=== PATIENT | male | born 1955 | race Caucasian/White ===

== ENCOUNTER 2017-02-02 18:40 | Emergency (ER) | payer OTHER ==
[~2017-02-02] VITALS: Ht 180.3 cm; Wt 88.5 kg
[~2017-02-02 18:40] MED LIST: ASPI81TA82 PO; FENO145T2 PO; HYDR-3533 PO; KETO10 PO; METF500 PO; OMEP20TA39 PO; TAB-TAB PO; ZOFR4TAB3 SL
[2017-02-02 18:41] VITALS: BP 178/86; PULSE 76; RESP 18; TEMP 98.1; O2SAT 96
--- NOTE | 2017-02-02 19:17 | PD ---
Physical Exam Time Seen by Provider: 19:15 Narrative 62yo M c/o abd pain R sided and radiates around back. Hx of kidney and diverticulitis. +constipation. Denies N, V, fever. Denies urinary symptoms. Patient seen in triage. VS reviewed. Awaiting bed placement. Data Data Last Documented VS Vital Signs Date Time Temp Pulse Resp B/P Pulse Ox O2 Delivery O2 Flow Rate FiO2 02/02/17 18:41 98.1 76 18 178/86 96 Room Air MDM Supervised Visit with RAHUL: Sharmila Shabazz Feb 02, 2017 19:17
[2017-02-02 20:25] LABS: BLOOD, URINE LARGE (NEG); COMMENT (UR) CULT NOT INDICATED; CULTURE IF INDICATED CULT NOT INDICATED; GLUCOSE,URINE TRACE mg/dL (NEG); HYALINE CAST, URINE 4 /lpf (RARE); KETONE, URINE NEG (NEG); MUCUS URINE FEW /lpf (OCC); NITRITE,URINE NEG (NEG); PH, URINE 5.5 (5.0-8.5); SQUAMOUS EPITHELIAL CELL URINE <1 /hpf (0-5); URINE COLOR YELLOW (YELLW/STRAW)
[2017-02-02] MEDS ORDERED: SODIUM CHLORIDE 0.9% FLUSH 10 ML FLUSH IV FLUSH PRN (20:45)
--- NOTE | 2017-02-02 20:46 | PD ---
HPI . Abdominal pain radiating to the back for one day Chief Complaint: GI Complaint Time Seen by Provider: 20:39 Travel History International Travel<30 days: No Contact w/Intl Traveler<30days: No Traveled to known affect area: No History of Present Illness HPI 62-year-old male with history of diverticulitis, nephrolithiasis, diabetes and hyperlipidemia here with complaints of abdominal pain that started about 3:30 this morning. Patient says he was resting in bed when he developed sudden onset of abdominal pain wrapping around to both sides of his back. He reports it feels similar to when had kidney stones in the past, however he does not have any urinary changes this time. He tells me last time during his kidney stone episode that he had difficulty urinating. Patient rates the pain at this present moment as 5/10, however earlier on his way here he had 10/10 pain where he was doubled over. He also reports some issues with bowel movements and has been constipated for the past few days. He denies any nausea, vomiting, diarrhea, dysuria, hematuria or changes in urinary frequency. He is accompanied by his . PFSH Past Medical History Asthma: No Blood Disorders: No Anxiety: No Depression: No Heart Rhythm Problems: No Cancer: Yes (SURGERY HEAD CANCER) Cardiovascular Problems: No High Cholesterol: Yes Chemotherapy: No Chest Pain: No Congestive Heart Failure: No COPD: No Diabetes: Yes Diminished Hearing: No Endocrine: No Genitourinary: No Immune Disorder: No Musculoskeletal: No Neurologic: No Psychiatric: No Reproductive: No Respiratory: No Radiation Therapy: No Sleep Apnea: No Thyroid Disease: No Past Surgical History Other Surgery: Yes (MULTIPLE SCALP SURGERIES FOR CANCER) Social History Alcohol Use: Yes (COUPLE TIMES A WEEK) Tobacco Use: No (never) Substance Use: No Allergies-Medications (Allergen,Severity, Reaction): Coded Allergies: No Known Allergies (Verified , 02/02/17) Reported Meds & Prescriptions Reported Meds & Active Scripts Active Zofran ODT (Ondansetron HCl) 4 Mg Tab 4 Mg SL Q6H PRN FOR NAUSEA/VOMITING Lortab 5 mg/325 mg (Hydrocodone/Acetaminophen 5 mg/325 mg) 1 Tab 1 Tab PO Q4H PRN Toradol (Ketorolac Tromethamine) 10 Mg Tab 10 Mg PO Q6 5 Days Aspir-81 (Aspirin) 81 Mg Tab 81 Mg PO DAILY 30 Days Reported Fenofibrate 145 Mg Tab 145 Mg PO DAILY Hm Omeprazole (Omeprazole) 20 Mg Tab 20 Mg PO DAILY Glucophage 500 mg (Metformin HCl) 500 Mg Tab 500 Mg PO BIDPC Multivitamin (Multivitamins) 1 Tab Tab 1 Tab PO DAILY Review of Systems General / Constitutional: No: Fever Eyes: No: Visual changes HENT: No: Headaches Cardiovascular: No: Chest Pain or Discomfort Respiratory: No: Shortness of Breath Gastrointestinal: Positive: Abdominal Pain Genitourinary: No: Dysuria Musculoskeletal: Positive: Pain (back pain) Skin: No Rash Neurologic: No: Weakness Psychiatric: No: Depression Endocrine: No: Polydipsia Hematologic/Lymphatic: No: Easy Bruising Physical Exam Narrative GENERAL: AAO x 3, no acute distress, Well-nourished, well-developed patient. SKIN: Warm and dry. No visible rashes or bruising. HEAD: Normocephalic and atraumatic. EYES: No scleral icterus. No injection or drainage. EOM intact, PERRLA ENT: No nasal drainage noted. Mucous membranes pink. Airway patent. Moist mucous membrane. NECK: Supple, trachea midline. No JVD. CARDIOVASCULAR: Regular rate and rhythm without murmurs, gallops, or rubs. RESPIRATORY: Breath sounds equal bilaterally. No accessory muscle use. No rhonchi or rales. GASTROINTESTINAL: Abdomen is soft, there is tenderness in the entire abdomen but more prominent in the right upper quadrant. No McBurney point tenderness. No rebound or guarding. EXTREMITIES: No cyanosis or edema. BACK: Nontender without obvious deformity. Bilateral CVA tenderness on examination. NEURO: CN 2 through 12 intact PSYCH: AAO x 3, normal affect. Data Data Last Documented VS Vital Signs Date Time Temp Pulse Resp B/P Pulse Ox O2 Delivery O2 Flow Rate FiO2 02/02/17 18:41 98.1 76 18 178/86 96 Room Air Orders Urinalysis - C+S If Indicated (02/02/17 19:41) Complete Blood Count With Diff (02/02/17 20:33) Comprehensive Metabolic Panel (02/02/17 20:33) Lipase (02/02/17 20:33) Ct Abd/Pel W Iv Contrast(Rout) (02/02/17 20:33) Iv Access Insert/Monitor (02/02/17 20:33) Ecg Monitoring (02/02/17 20:33) Oximetry (02/02/17 20:33) NPO (02/02/17 20:33) Sodium Chloride 0.9% Flush (Ns Flush) (02/02/17 20:45) Electrocardiogram (02/02/17 20:33) Labs Laboratory Tests Test 02/02/17 19:42 Urine Color YELLOW Urine Turbidity CLEAR Urine pH 5.5 Urine Specific [place] 1.016 Urine Protein 30 mg/dL Urine Glucose (UA) TRACE mg/dL Urine Ketones NEG mg/dL Urine Occult Blood LARGE Urine Nitrite NEG Urine Bilirubin NEG Urine Urobilinogen LESS THAN 2.0 MG/DL Urine Leukocyte Esterase NEG Urine RBC /hpf Urine WBC 5 /hpf Urine Squamous Epithelial <1 /hpf Cells Urine Hyaline Casts 4 /lpf Urine Mucus FEW /lpf Microscopic Urinalysis Comment CULT NOT INDICATED MDM Medical Decision Making Medical Screen Exam Complete: Yes Emergency Medical Condition: Yes Medical Record Reviewed: Yes Differential Diagnosis Nephrolithiasis, cholecystitis, cholelithiasis, constipation, diverticulitis, pancreatitis Narrative Course This is a 62-year-old male presenting with acute onset of abdominal pain earlier this morning. Examination is remarkable for diffuse abdominal tenderness more prominent in the right upper quadrant. He also has bilateral CVA tenderness. Labs and CT scan of the abdomen and pelvis have been ordered. At this point I suspect patient has nephrolithiasis or cholecystitis versus cholelithiasis. I've offered him pain medication, and he declined. I have discussed the case with Dr. Hickey. He will determine patient's disposition. Condition: Stable Sanjuana Glover Feb 02, 2017 20:46
--- NOTE | 2017-02-02 20:56 | PD ---
Data Data Last Documented VS Vital Signs Date Time Temp Pulse Resp B/P Pulse Ox O2 Delivery O2 Flow Rate FiO2 02/02/17 21:00 75 16 147/80 98 Room Air 02/02/17 18:41 98.1 Orders Urinalysis - C+S If Indicated (02/02/17 19:41) Complete Blood Count With Diff (02/02/17 20:33) Comprehensive Metabolic Panel (02/02/17 20:33) Lipase (02/02/17 20:33) Ct Abd/Pel W Iv Contrast(Rout) (02/02/17 20:33) Iv Access Insert/Monitor (02/02/17 20:33) Ecg Monitoring (02/02/17 20:33) Oximetry (02/02/17 20:33) NPO (02/02/17 20:33) Sodium Chloride 0.9% Flush (Ns Flush) (02/02/17 20:45) Electrocardiogram (02/02/17 20:33) Oral Contrast - Adult (02/02/17 20:37) Diatrizoate Liq ( Gastroview Liq) (02/02/17 21:14) Iodixanol 320 Inj (Rad Ct) (Visipaque 32 (02/02/17 22:29) Ciprofloxacin (Cipro) (02/02/17 23:00) Labs Laboratory Tests Test 02/02/17 02/02/17 19:42 20:45 Urine Color YELLOW Urine Turbidity CLEAR Urine pH 5.5 Urine Specific [place] 1.016 Urine Protein 30 mg/dL Urine Glucose (UA) TRACE mg/dL Urine Ketones NEG mg/dL Urine Occult Blood LARGE Urine Nitrite NEG Urine Bilirubin NEG Urine Urobilinogen LESS THAN 2.0 MG/DL Urine Leukocyte Esterase NEG Urine RBC /hpf Urine WBC 5 /hpf Urine Squamous Epithelial <1 /hpf Cells Urine Hyaline Casts 4 /lpf Urine Mucus FEW /lpf Microscopic Urinalysis Comment CULT NOT INDICATED White Blood Count 12.6 TH/MM3 Red Blood Count 4.44 MIL/MM3 Hemoglobin 14.6 GM/DL Hematocrit 40.9 % Mean Corpuscular Volume 92.1 FL Mean Corpuscular Hemoglobin 32.8 PG Mean Corpuscular Hemoglobin 35.7 % Concent Red Cell Distribution Width 12.0 % Platelet Count 189 TH/MM3 Mean Platelet Volume 8.4 FL Neutrophils (%) (Auto) 89.5 % Lymphocytes (%) (Auto) 4.2 % Monocytes (%) (Auto) 6.0 % Eosinophils (%) (Auto) 0.2 % Basophils (%) (Auto) 0.1 % Neutrophils # (Auto) 11.3 TH/MM3 Lymphocytes # (Auto) 0.5 TH/MM3 Monocytes # (Auto) 0.8 TH/MM3 Eosinophils # (Auto) 0.0 TH/MM3 Basophils # (Auto) 0.0 TH/MM3 CBC Comment DIFF FINAL Differential Comment Sodium Level 132 MEQ/L Potassium Level 4.6 MEQ/L Chloride Level 98 MEQ/L Carbon Dioxide Level 27.2 MEQ/L Anion Gap 7 MEQ/L Blood Urea Nitrogen 18 MG/DL Creatinine 1.77 MG/DL Estimat Glomerular Filtration 39 ML/MIN Rate Random Glucose 180 MG/DL Calcium Level 9.6 MG/DL Total Bilirubin 0.7 MG/DL Aspartate Amino Transf 34 U/L (AST/SGOT) Alanine Aminotransferase 62 U/L (ALT/SGPT) Alkaline Phosphatase 69 U/L Total Protein 7.8 GM/DL Albumin 4.3 GM/DL Lipase 267 U/L [facility] Medical Record Reviewed: Yes Supervised Visit with RAHUL: Yes Narrative Course CBC & BMP Diagram 02/02/17 20:45 LFTs normal Lipase normal UA: Hematuria CT abdomen/pelvis: mild inflammatory change around kidney without stone possibly c/w passed stone Pt actually passed a stone while in ER and a photo was obtained of it. Upon reassessment 1045pm: The patient is resting comfortably and feels better, is alert and in no distress. The patients results and examination findings were discussed. The repeat examination is unremarkable and benign. The history, exam , diagnostic testing, and current condition do not suggest any significant pathology to warrant further testing, continued ED treatment, admission, or surgical evaluation at this point. The vital signs have been stable. The patient does not have uncontrollable pain, intractable vomiting, or other significant symptoms. The patient's condition is stable and appropriate for discharge. The patient will pursue further outpatient evaluation with a primary care physician or other designated or consulting physician as indicated in the discharge instructions. The patient expressed understanding and was agreeable with this plan. Diagnosis Primary Impression: Hematuria Additional Impression: Hydroureter Referrals: Ruslan Muñoz MD 2 days Additional Instruction: You have a choice when it comes to health care, and we are glad that you chose [facility]. Hopefully, we have met your expectations on today's visit. You are welcome to return to [facility] at any time, as we are committed to meeting the health care needs of our community. Med/Other Pt SpecificInfo: Prescription(s) given Scripts Ciprofloxacin (Cipro)500 Mg Arm683 Mg PO BID 7 Days Ref 0 Prov:Noe Hickey MD 02/02/17 Disposition: 01 DISCHARGE HOME Condition: Stable Noe Hickey MD Feb 02, 2017 20:56
[2017-02-02 21:00] VITALS: BP 147/80; PULSE 75; RESP 16; O2SAT 98
[2017-02-02] MEDS ORDERED: ZOFR4TAB PO (21:02)
[2017-02-02] MEDS ORDERED: MULTTAB22 (21:02)
[2017-02-02] MEDS ORDERED: OMEP20TA PO (21:02)
[2017-02-02] MEDS ORDERED: METF500T PO (21:02)
[2017-02-02] MEDS ORDERED: FENO145T2 PO (21:02)
[2017-02-02] MEDS ORDERED: ASPI81CH7 CHEW (21:02)
[2017-02-02] MEDS ORDERED: DIATRIZOATE MEGLUM/DIATRIZOATE SOD 9 ML CUP ONE (21:14)
[2017-02-02 21:35] LABS: AUTOMATED NEUTROPHIL # 11.3 TH/MM3 (1.8-7.7); BASOPHIL % 0.1 % (0.0-2.0); EOSINOPHIL % 0.2 % (0.0-4.0); HEMATOCRIT 40.9 % (39.0-51.0); HEMO FLAGS DIFF FINAL; LYMPH % 4.2 % (9.0-44.0); LYMPHOCYTE # 0.5 TH/MM3 (1.0-4.8); MEAN CELL VOLUME 92.1 FL (80.0-100.0); MEAN CORPUSCULAR HEMOGLOBIN 32.8 PG (27.0-34.0); MEAN CORPUSCULAR HGB CONC 35.7 % (32.0-36.0); NEUT % 89.5 % (16.0-70.0); PLATELET COUNT 189 TH/MM3 (150-450); RED BLOOD COUNT 4.44 MIL/MM3 (4.50-5.90); WHITE BLOOD COUNT 12.6 TH/MM3 (4.0-11.0)
[2017-02-02 21:52] LABS: ANION GAP 7 MEQ/L (5-15); AST (GOT) 34 U/L (15-37); BICARBONATE 27.2 MEQ/L (21.0-32.0); BLOOD UREA NITROGEN 18 MG/DL (7-18); CHLORIDE 98 MEQ/L (98-107); GLOMERULAR FILTRATION RATE 39 ML/MIN (>89); POTASSIUM 4.6 MEQ/L (3.5-5.1); SODIUM (NA) 132 MEQ/L (136-145)
[2017-02-02 21:54] LABS: ALT (GPT) 62 U/L (12-78)
[2017-02-02 21:56] LABS: ALKALINE PHOSPHATASE 69 U/L (45-117); TOTAL BILIRUBIN ADULT 0.7 MG/DL (0.2-1.0)
[2017-02-02] MEDS ORDERED: IODIXANOL 320 MG/ML 10 ML VIAL (for Rad CT) IV ONE (22:29)
--- NOTE | 2017-02-02 22:35 | RADRPT ---
EXAM DATE/TIME: 02/02/2017 22:17 [place] COMPARISON: No previous studies available for comparison. INDICATIONS : Right sided abdomen pain with constipation. Recent past the calculus just before the exam. IV CONTRAST: 50 cc Visipaque (iodixanol) IV ORAL CONTRAST: Prescribed oral contrast ingested. RADIATION DOSE: 9.96 CTDIvol (mGy) MEDICAL HISTORY : Renal calculi. Diabetes mellitus type 2. Diverticulitis. SURGICAL HISTORY : None. ENCOUNTER: Initial ACUITY: 1 day PAIN SCALE: 7/10 LOCATION: Right abdomen TECHNIQUE: Volumetric scanning of the abdomen and pelvis was performed. Using automated exposure control and ad justment of the mA and/or kV according to patient size, radiation dose was kept as low as reasonably achievable to obtain optimal diagnostic quality images. FINDINGS: LOWER LUNGS: The visualized lower lungs are clear. LIVER: The liver is normal in size and shape with diffuse moderate hepatic steatosis. There is no ductal dil atation. The gallbladder is unremarkable in appearance. SPLEEN: Normal size without lesion. PANCREAS: Within normal limits. KIDNEYS: There are multiple nonobstructing left renal calculi. The largest measures up to approximately 10 mm. There are no right renal calculi however there is surrounding inflammatory change and mild prominenc e of the right collecting system. There is mild prominence of the right ureter with no ureteral calcu jose identified. ADRENAL GLANDS: Within normal limits. VASCULAR: There is no aortic aneurysm. BOWEL/MESENTERY: The stomach, small bowel, and colon demonstrate no acute abnormality. There is no free intraperitone al air or fluid. ABDOMINAL WALL: Within normal limits. RETROPERITONEUM: There is no lymphadenopathy. BLADDER: No wall thickening or mass. REPRODUCTIVE: Within normal limits. INGUINAL: There is no lymphadenopathy or hernia. MUSCULOSKELETAL: Within normal limits for patient age. CONCLUSION: 1. Mild inflammatory change and slight prominence of the right collecting system. No renal or uretera l calculi. This could indicate recent obstruction and recent passage of renal calculus according to h istory. 2. Multiple nonobstructing left renal calculi. 3. Moderate hepatic steatosis. Hill Sinha MD on February 02, 2017 at 22:29 Board Certified Radiologist. This report was verified electronically.
[2017-02-02] MEDS ORDERED: CIPR-9 PO (22:40)
[2017-02-02] MEDS ORDERED: CIPROFLOXACIN 500 MG TAB PO ONE (23:00)
--- NOTE | 2017-02-04 18:04 | EKG ---
Date Performed: 02/02/2017 Time Performed: 20:54:23 PTAGE: 62 years EKG: Sinus rhythm RIGHT BUNDLE BRANCH BLOCK ABNORMAL ECG PREVIOUS TRACING : 07/29/2014 07.56 Compared to prior tracing no significant change DOCTOR: Cherelle Damon Interpretating Date/Time 02/04/2017 18:02:13
== END 2017-02-03 00:58 | disposition home or self-care (01) ==
LOC: NEPD 18:40
DX: R31.9 Hematuria, unspecified (principal); N13.4 Hydroureter; R94.31 Abnormal electrocardiogram [ECG] [EKG]
CPT/HCPCS: 74177; 80053; 81001; 83690; 85025; 93005; 99285; Q9963; Q9967